=== PATIENT | female | born 1995 | race Caucasian/White ===

== ENCOUNTER 2017-03-13 12:07 | Emergency (ER) | payer OTHER ==
[~2017-03-13] VITALS: Ht 167.6 cm; Wt 80.3 kg
[2017-03-13 12:16] VITALS: BP 127/80
== END 2017-03-13 13:23 | disposition home or self-care (01) ==
LOC: ED 12:07
DX: S61.051A Open bite of right thumb without damage to nail, initial encounter (principal); R03.0 Elevated blood-pressure reading, without diagnosis of hypertension; W54.0XXA Bitten by dog, initial encounter; Y93.89 Activity, other specified; Y99.8 Other external cause status; Y92.89 Other specified places as the place of occurrence of the external cause
CPT/HCPCS: 90715; A4570; Q0092

== ENCOUNTER 2017-09-04 17:05 | Emergency (ER) | payer OTHER ==
[~2017-09-04] VITALS: Ht 167.6 cm; Wt 78.0 kg
[2017-09-04 17:14] VITALS: Ht 167.6 cm; Wt 78.0 kg
[2017-09-04 18:51] LABS: BASOPHIL % 0.3 % (0-2); PLATELET COUNT 235 x10^3mcL (130-400); RED CELL DISTRIBUTION WIDTH 13.1 % (11.5-14.5)
[2017-09-04 19:02] LABS: CALCIUM 8.2 mg/dL (8.5-10.1); CARBON DIOXIDE 24.7 mmol/L (21-32); CHLORIDE SERUM 104 mmol/L (98-107); CREATININE SERUM 0.8 mg/dL (0.6-1.0); GFR1 > 60 mL/min; GLUCOSE SERUM 98 mg/dL (74-106); POTASSIUM SERUM 3.5 mmol/L (3.5-5.1); SODIUM SERUM 137 mmol/L (136-145)
[2017-09-04 19:06] LABS: ALBUMIN 3.9 g/dL (3.4-5.0); ALKALINE PHOSPHATASE 101 U/L (46-116); ALT/SGPT 23 U/L (14-59); AST/SGOT 11 U/L (15-37); BILIRUBIN TOTAL 0.51 mg/dL (0.20-1.00); TOTAL PROTEIN, SERUM 8.2 g/dL (6.4-8.2)
[2017-09-04 19:43] VITALS: BP 104/72
== END 2017-09-04 19:43 | disposition home or self-care (01) ==
LOC: ED 17:05
PROVIDERS: Emergency Medicine
DX: R11.10 Vomiting, unspecified (principal); R19.7 Diarrhea, unspecified
CPT/HCPCS: J2405; J7030

== ENCOUNTER 2017-10-27 21:25 | Emergency (ER) | payer OTHER ==
[~2017-10-27] VITALS: Ht 165.1 cm; Wt 78.0 kg
[2017-10-27 21:38] VITALS: Ht 165.1 cm; Wt 78.0 kg
[2017-10-27 23:20] VITALS: BP 108/66
== END 2017-10-27 23:32 | disposition home or self-care (01) ==
LOC: ED 21:25
DX: M54.12 Radiculopathy, cervical region (principal)

== ENCOUNTER 2019-07-29 21:42 | Emergency (ER) | payer OTHER ==
[~2019-07-29] VITALS: Ht 165.1 cm; Wt 85.3 kg
[2019-07-29 22:21] VITALS: Ht 165.1 cm; Wt 85.3 kg
[2019-07-30 00:40] VITALS: BP 112/76
== END 2019-07-30 00:40 | disposition home or self-care (01) ==
LOC: ED 21:42
DX: T78.1XXA Other adverse food reactions, not elsewhere classified, initial encounter (principal); X58.XXXA Exposure to other specified factors, initial encounter

== ENCOUNTER 2019-10-12 18:49 | Emergency (ER) | payer SELFPAY ==
[~2019-10-12] VITALS: Ht 167.6 cm; Wt 73.0 kg
[2019-10-12 18:51] VITALS: BP 141/86; Ht 167.6 cm; Wt 73.0 kg
== END 2019-10-12 19:17 | disposition left against medical advice (07) ==
LOC: ED 18:49
DX: R06.02 Shortness of breath (principal)